=== PATIENT | female | born 1955 | race Hispanic/Latino ===

== ENCOUNTER 2024-11-11 12:53 | Emergency (ER) | payer SELFPAY ==
[~2024-11-11] VITALS: Ht 149.9 cm; Wt 56.7 kg
[~2024-11-11 12:53] MED LIST: ASPIRIN EC81 MG PO; LISINOPRIL5 MG PO; PENTOXIFYLLINE400 MG PO; SIMVASTATIN20 MG PO; VITAMIN C1000 MG PO
[2024-11-11 12:58] VITALS: PULSE 70; RESP 15; TEMP 97.7
[2024-11-11] MEDS: KETOROLAC TROMETHAMINE 30 MG/ML VIAL IM STA (13:25)
[2024-11-11] MEDS: TRAMADOL HCL 50 MG TAB PO ONE (13:26)
[2024-11-11] MEDS ORDERED: NAPROXEN250 MG PO (16:52)
[2024-11-11 17:19] VITALS: BP 125/62; PULSE 68; RESP 16; TEMP 97.9; O2SAT 100
== END 2024-11-11 17:18 | disposition home or self-care (01) ==
LOC: ER 13:01
DX: M54.50 Low back pain, unspecified (principal); M25.561 Pain in right knee; W01.0XXA Fall on same level from slipping, tripping and stumbling without subsequent striking against object, initial encounter; Y93.01 Activity, walking, marching and hiking; Y92.89 Other specified places as the place of occurrence of the external cause; I10 Essential (primary) hypertension
CPT/HCPCS: 72131; 72192; 73562; 99283; J1885